=== PATIENT | female | born 1970 | race Caucasian/White ===

== ENCOUNTER 2016-02-29 12:18 | Emergency (ER) | payer MEDICAID ==
[2016-02-29 12:51] VITALS: BP 128/81; PULSE 106; TEMP 98.8; BMI 28.6
--- NOTE | 2016-02-29 13:21 | EDPRACDOC ---
- General Information Chief Complaint: Knee Pain Stated Complaint: OUT OF MEDS RT KNEE PAIN Time Seen by Provider: 02/29/16 12:48 Information Source: Patient Mode of Arrival: Car Home Medications: Home Medications Albuterol Sulfate [Proventil Hfa] 1 - 2 puff INH Q4H PRN #1 each 02/29/16 Alprazolam [Xanax] 1 mg PO BID #14 tab 02/29/16 Meloxicam [Mobic] 7.5 mg PO BID #20 tab 02/29/16 - History of Present Illness Onset: yesterday HPI: PT PRESENTS TODAY WITH RIGHT KNEE PAIN AFTER MECHANICAL FALL YESTERDAY. PT ALSO HERE REQUESTING MEDICATION REFILLS FOR PERCOCET, XANAX AND PROAIR. DR. ROMAN PTS HAVE BEEN HERE TODAY REQUESTING REFILLS D/T DR. ROMAN BEING OUT D/T IN FAMILY. THIS WAS CONFIRMED YESTERDAY. Knee Problem Location: Right Mechanism: Reports: Twisting Circumstances: Reports: Fall Relevant History: Reports: None Able to Bear Weight: Fully Pain Severity: Reports: Mild Associated Signs & Symptoms: Reports: None ED Past Medical History - History Reviewed Yes Nurses notes reviewed and agree except as marked - Social Medical History Smoking Status: Heavy tobacco smoker (5 or more cigarettes/day or daily pipe/ cigar) EDM Review of Systems - Review of Systems ROS Negative Except as Marked: Yes All systems reviewed and were negative except as marked Constitutional: No Symptoms Reported Respiratory: No Symptoms Reported Cardiovascular: No Symptoms Reported Gastrointestinal: No Symptoms Reported Neurological: No Symptoms Reported Musculoskeletal: Knee Integumentary: No Symptoms Reported - Physical Exam Constitutional: Alert (Awake), No apparent distress Oriented to: Time, Person, Place Last recorded Vital Signs: Last Vital Signs Temp 98.8 F 02/29/16 12:46 Pulse 106 02/29/16 12:46 Resp 18 02/29/16 12:46 BP 128/81 02/29/16 12:46 Pulse Ox 88 L 02/29/16 12:46 Oxygen Pulse Oxygen Saturation 88 O2 Device Room Air Oxygen Flow Rate Fraction of Inspired Oxygen ( FIO2) - HEENT Head: Normal Eye Exam: Normal Neck: Normal, Denies Pain, Midline - Respiratory/Cardiovascular Respiratory: Normal - CTA Cardiovascular: Normal - GI Palpation: Normal Tenderness: Non tender - Musculoskeletal Back: Normal Extremities: Other (PT STATES PAIN WITH EXTERNAL ROTATION OF RIGHT KNEE; NO APPARENT SWELLING/BRUISING/DEFORMITY; PEDAL PULSES NORMAL) - Integumentary Skin: Normal Lymphatics: Normal - Neurologic Cerebellar: Normal Mood Description: Normal Thought: Coherent Perception: Normal ED Knee Problem Phys Exam - Musculoskeletal Knee: Limited ROM, Moderate Tenderness Knee Ligaments: Normal Knee Meniscus: Normal Thigh: Normal Lower Leg: Normal Distal Function/Circulation: Normal - Additional Information NOTED PT HAS ACTIVE XANAX PRESCRIPTION THAT IS DUE FOR REFILL TODAY, BUT NOT ACTIVE PERCOCET PRESCRIPTION; WHEN I TALKED WITH PT ABOUT THIS, SHE STATED THAT HER PCP DISCONTINUED HER PERCOCET BECAUSE SHE DID TAKE A SUBOXEN STRIP AND HAD POSITIVE UDS. I EXPLAINED TO PT THAT I WOULD NOT GIVE NARCOTICS. PT UNDERSTANDS. Decision Time to Discharge: 13:40 - Departure Disposition: Home Condition: Good Final Diagnosis: Sprain of knee Instructions: RICE: Routine Care for Injuries Education/Counseling Given To: Patient Education/Counseling Given Regarding: Diagnosis, Treatment, Follow Up Referrals: Simeno Roman MD [Primary Care Provider] - One Week Prescriptions: Albuterol Sulfate [Proventil Hfa] 1 - 2 puff INH Q4H PRN #1 each PRN Reason: Shortness Of Breath Alprazolam [Xanax] 1 mg PO BID #14 tab Meloxicam [Mobic] 7.5 mg PO BID #20 tab Additional Instructions: PLEASE FOLLOW UP WITH PCP REGARDING MEDICATION REFILLS AND POSSIBLE NEED OF OUTPATIENT MRI FOR KNEE.
--- NOTE | 2016-02-29 13:27 | DIRPT ---
CLINICAL DATA: Status post fall. Right knee pain. EXAM: RIGHT KNEE - COMPLETE 4+ VIEW COMPARISON: None. FINDINGS: There is no evidence of fracture, dislocation, or joint effusion. There is no evidence of arthropathy or other focal bone abnormality. Soft tissues are unremarkable. IMPRESSION: No acute osseous injury of the right knee. Electronically Signed By: Shell Mathias On: 02/29/2016 13:24
== END 2016-02-29 13:53 | disposition home or self-care (01) ==
LOC: EDMC 12:18
DX: S83.91XA Sprain of unspecified site of right knee, initial encounter (principal); W19.XXXA Unspecified fall, initial encounter; F17.200 Nicotine dependence, unspecified, uncomplicated
CPT/HCPCS: 99282